=== PATIENT | male | born 1980 | race Caucasian/White ===

== ENCOUNTER 2019-01-28 09:04 | Emergency (ER) | payer SELFPAY ==
[~2019-01-28] VITALS: Ht 154.9 cm; Wt 72.6 kg
[2019-01-28 09:12] VITALS: BP 124/91
--- NOTE | 2019-01-28 09:14 | NUR ---
PT SENT TO ER LOBBY TO WAIT FOR AVAILABLE BED.
--- NOTE | 2019-01-28 10:17 | NUR ---
PATIENT AMBULATED TO BED 5
[2019-01-28] MEDS ORDERED: NACL 0.9% 1,000 ML IV SCH (10:22)
[2019-01-28] MEDS ORDERED: KETOROLAC 30 MG/ML VIAL IVP ONE (10:25)
--- NOTE | 2019-01-28 10:32 | NUR ---
LAB AT BEDSIDE
--- NOTE | 2019-01-28 10:33 | NUR ---
PT BIB SELF C/O ABD PAIN X3 DAYS, CONSTIPATION FOR THE PAST 3 DAYS WITH NAUSEA, DENIES FEVER OR CHILLS. CONSTANT SQUEEZING EPIGASTRIC PAIN AT 8/10 THAT RADIATES TO LT LOWER BACK. VSS. ER MD TO SEE PT. HX DENIES
[2019-01-28 10:43] LABS: BASOPHILS % (AUTO) 0.4 % (0.0-2.0); EOSINOPHILS % (AUTO) 0.5 % (0.0-4.0); HEMATOCRIT 50.2 % (36-52); LYMPHOCYTES # (AUTO) 1.7 K/uL (2.0-11.5); LYMPHOCYTES % (AUTO) 20.5 % (20.5-51.1); MEAN CORPUSCULAR HEMOGLOBIN 32 pg (27-31); MEAN CORPUSCULAR HGB CONC 34 g/dL (33-37); MEAN CORPUSCULAR VOLUME 95.1 fL (80-94); MONOCYTES # (AUTO) 0.8 K/uL (0.8-1.0); MONOCYTES % (AUTO) 9.9 % (1.7-9.3); NEUTROPHILS # (AUTO) 5.6 K/uL (1.8-7.7); NEUTROPHILS % (AUTO) 68.7 % (42.2-75.2); PLATELET COUNT (AUTO) 287 K/uL (140-450); RED BLOOD CELL COUNT(AUTO) 5.27 MIL/uL (4.20-6.10); RED CELL DISTRIBUTION WIDTH 13.3 % (11.6-13.7); WHITE BLOOD COUNT (AUTO) 8.1 K/uL (4.8-10.8)
--- NOTE | 2019-01-28 10:43 | NUR ---
PATIENT IS BACK FROM CT
[2019-01-28 10:56] LABS: ANION GAP 11.1 (8-16); CARBON DIOXIDE 30.4 mmol/L (21-32); CREATININE 0.9 mg/dL (0.7-1.3); POTASSIUM 4.5 mmol/L (3.5-5.1)
--- NOTE | 2019-01-28 11:29 | NUR ---
PT STATES HE WILL TRY TO GIVE URINE SAMPLE WITH URINAL AT THIS TIME.
[2019-01-28 11:33] LABS: ALBUMIN 4.1 g/dL (3.4-5.0); TOTAL BILIRUBIN 1.4 mg/dL (0.0-1.0)
--- NOTE | 2019-01-28 12:06 | NUR ---
WALKED URINE SAMPLE TO LAB
[2019-01-28 12:11] LABS: APPEARANCE,URINE HAZY (CLEAR); BILIRUBIN,URINE NEGATIVE (NEGATIVE); BLOOD, URINE NEGATIVE (NEGATIVE); COLOR,URINE YELLOW (YELLOW); LEUKOCYTE ESTERASE ,URINE NEGATIVE (NEGATIVE); NITRITE, URINE NEGATIVE (NEGATIVE); PH,URINE 7.5 (5.0-9.0); UGLUCOSE NEGATIVE (NEGATIVE)
[2019-01-28 13:19] VITALS: BP 122/89
--- NOTE | 2019-01-28 13:19 | NUR ---
Patient discharged with v/s stable. Written and verbal after care instructions given and explained. Patient alert, oriented and verbalized understanding of instructions. Ambulatory with steady gait. All questions addressed prior to discharge. ID band removed. Patient advised to follow up with PMD. Rx of MIRALAX, COLACE, GLYCERIN SUPPOSITORY given. Patient educated on indication of medication including possible reaction and side effects. Opportunity to ask questions provided and answered.
== END 2019-01-28 13:19 | disposition home or self-care (01) ==
LOC: MED 09:04
DX: K59.00 Constipation, unspecified (principal); R10.30 Lower abdominal pain, unspecified; R03.0 Elevated blood-pressure reading, without diagnosis of hypertension; F17.200 Nicotine dependence, unspecified, uncomplicated
CPT/HCPCS: 36415; 74176; 80053; 81003; 83605; 83690; 85025; 87040; 96374; 99284; 99406; J1885; J7030; 81002